=== PATIENT | female | born 1980 | race Caucasian/White ===

== ENCOUNTER 2018-08-07 15:30 | Outpatient (REF) | payer MEDICAID, SELFPAY ==
[2018-08-07 21:35] LABS: Hemoglobin A1C 5.5 % (4.5-6.2)
[2018-08-07 21:44] LABS: Cholesterol 218 mg/dL (50-200); HDL Cholesterol 44 mg/dL (40-60); LDL CHOLESTEROL 155 mg/dL (<100); TSH (W/Ref FT4) 1.81 uIU/mL (0.358-3.74); Triglyceride 68 mg/dL (30-150)
== END 2018-08-07 15:50 ==
LOC: NCHCN 15:30
PROVIDERS: PCP Nurse Practitioner Family; Visit Provider Nurse Practitioner Family
DX: R35.0 Frequency of micturition (principal); F39 Unspecified mood [affective] disorder; G47.00 Insomnia, unspecified; N89.8 Other specified noninflammatory disorders of vagina; E66.9 Obesity, unspecified; Z00.00 Encounter for general adult medical examination without abnormal findings
CPT/HCPCS: 80061; 83721; 83036; 84443

== ENCOUNTER 2018-10-02 14:32 | Outpatient (REF) | payer MEDICAID, SELFPAY ==
--- NOTE | 2018-10-02 14:00 | PAPFT_PTH ---
PATIENT: Brinda Neely LOC: [facility]#:[id number] AGE/SX: 38/F ROOM: RE10/02/[address]: Taylor Cobian : 1980 BED: DIS: 10/02/2018 SPEC #: [id number] RECD: 10/03/18 13:14 STATUS: LLOYD MUKHERJEE #: [id number] KARIE: 10/02/18 14:[address]: Taylor Cobian DEPT: [facility] Cytology RECD BY: Karlie Mckeon Tissues: 1 - CX/ENDOCX FOR PAP SMEARS Procedures: PAP THIN PREP/UVM Screening HPV DNA PROBE Comments: [id number]
== END 2018-10-02 14:52 ==
LOC: NCHCN 14:32
PROVIDERS: PCP Nurse Practitioner Family; Visit Provider Nurse Practitioner Family
DX: Z12.4 Encounter for screening for malignant neoplasm of cervix (principal); Z11.51 Encounter for screening for human papillomavirus (HPV); Z00.00 Encounter for general adult medical examination without abnormal findings; Z01.419 Encounter for gynecological examination (general) (routine) without abnormal findings
CPT/HCPCS: 88142; 87624

== ENCOUNTER 2020-06-21 14:54 | Outpatient (REF) | payer MEDICAID, SELFPAY ==
[2020-06-25 17:22] LABS: Patient Race White; SARS-CoV-2 RNA Undetected (Undetected); SARS-CoV-2 Specimen Source Nasal
== END 2020-06-21 15:14 ==
LOC: NCHCN 14:54
PROVIDERS: PCP Nurse Practitioner Family; Visit Provider Nurse Practitioner Family
DX: Z20.828 Contact with and (suspected) exposure to other viral communicable diseases (principal)
CPT/HCPCS: U0003

== ENCOUNTER 2021-01-02 17:28 | Outpatient (REF) | payer BC, MEDICAID, SELFPAY | END 2021-01-02 17:29 | disposition home or self-care (01) | LOC: NCHCN 17:28 | PROVIDERS: PCP Nurse Practitioner Family; Visit Provider Nurse Practitioner Family | DX: R53.1 Weakness (principal); R21 Rash and other nonspecific skin eruption; E66.9 Obesity, unspecified; F39 Unspecified mood [affective] disorder | CPT/HCPCS: 82565 ==

== ENCOUNTER → 2022-06-08 00:48 | Outpatient (CLI) | payer BC, MEDICAID, SELFPAY ==
--- NOTE | 2022-06-08 | DI.RAD_ITS ---
Exam(s) XR HUMERUS LT EXAM: XR HUMERUS LT CLINICAL HISTORY: CONTRACEPTION COUNSELING Z71.89 CONFIRM LOCATION OF IMPLANT. TECHNIQUE: 2D digital imaging was performed. COMPARISON: No exams were available for comparison FINDINGS: Two views: No evidence of fracture. Bone density normal. No osseous lesions. Visualized glenohumeral joint ap pears unremarkable. IMPRESSION: No significant osseous findings. Incidentally noted is a contraceptive in tried device in the anteri or deep subcutaneous tissue of the lower aspect of the upper arm. DATA REPOSITORY: RADIATION DOSE DELIVERED:
== END ==
PROVIDERS: PCP Nurse Practitioner Family; Visit Provider Nurse Practitioner Family
DX: Z71.89 Other specified counseling (principal)
CPT/HCPCS: 73060

== ENCOUNTER 2023-01-17 15:22 | Outpatient (REF) | payer BC, MEDICAID, SELFPAY ==
[2023-01-17 14:25] LABS: ALT 31 U/L (14-59); AST 21 U/L (15-37); Alkaline Phosphatase 62 U/L (46-116); Anion Gap 10.6 mmol/L (3-11); BUN 20 mg/dL (7-18); Bilirubin, Total 0.6 mg/dL (0.2-1.0); CO2 25.4 mmol/L (21.0-32.0); Calculated LDL 155 mg/dL (<100); Chloride 106 mmol/L (98-107); Cholesterol 218 mg/dL (<200); Estimated GFR 72.13 (mL/min/1.73m2); Glucose 124 mg/dL (74-106); HDL Cholesterol 40 mg/dL (40-60); Potassium 4.7 mmol/L (3.5-5.1); Sodium 142 mmol/L (136-145); Total Protein 7.2 g/dL (6.4-8.2); Triglyceride 115 mg/dL (<150)
== END 2023-01-17 15:23 | disposition home or self-care (01) ==
LOC: NCHCN 15:22
PROVIDERS: PCP Nurse Practitioner Family; Visit Provider Family Medicine
DX: E78.5 Hyperlipidemia, unspecified (principal)
CPT/HCPCS: 80053; 80061

== ENCOUNTER 2023-05-27 15:52 | Outpatient (REF) | payer BC, MEDICAID, SELFPAY ==
--- NOTE | 2023-05-27 15:30 | PAPFT_PTH ---
PATIENT: Brinda Neely LOC: [facility]#:[id number] AGE/SX: 42/F ROOM: RE05/27/[address]: Taylor Cobian : 1980 BED: DIS: 05/27/2023 SPEC #: [id number] RECD: 05/28/23 13:07 STATUS: LLOYD REQ #: [id number] KARIE: 05/27/23 15:[address]: Taylor Cobian DEPT: [facility] Cytology RECD BY: Karlie Mckeon Tissues: 1 - CX/ENDOCX FOR PAP SMEARS Procedures: PAP THIN PREP/UVM Screening HPV DNA PROBE Comments: [id number]
== END 2023-05-27 15:53 | disposition home or self-care (01) ==
LOC: NCHCN 15:52
PROVIDERS: PCP Nurse Practitioner Family; Visit Provider Nurse Practitioner Family
DX: Z12.4 Encounter for screening for malignant neoplasm of cervix (principal); Z11.51 Encounter for screening for human papillomavirus (HPV)
CPT/HCPCS: 88142; 87624

== ENCOUNTER 2024-03-27 01:28 | Outpatient (CLI) | payer BC, MEDICAID, SELFPAY ==
--- OUTSIDE RECORDS SUMMARY | 2024-03-27 01:30 | XMS_ITS | Referral Summary ---
Author Organization [facility] Address [address] [place] [address] Care Team Providers Care Hospital Fellow Name Role Phone Taylor Cobian CORRECTIONS SPECIALIST Primary Care Provider [phone] Social History Tobacco Use Types Packs/Day Years Used Date Smoking Tobacco: Never Assessed Interpersonal Safety Answer Date Record ed Physically Hurt Never 02/28/2020 Verbally Threaten Not on file 02/28/2020 Sex and Gender Information Value Date Recorded Sex Assigned at Not on file Gender Identity Not on file Sexual Orientation Not on file Plan of Treatment Not on file Care Teams Hospital Fellow Relationship Specialty Start Date End Date Taylor Cobian, LISSY [address] [place] [address] PCP - General 03/22/17
--- OUTSIDE RECORDS SUMMARY | 2024-03-27 01:30 | XMS_ITS | Clinical Summary ---
Author Organization [facility] Address [address] [place] [address] Care Team Providers Care Sheet Rock Installer Name Role Phone Taylor Cobian SHIRT MAKER Primary Care Provider [phone] Social History Tobacco Use Types Packs/Day Years Used Date Smoking Tobacco: Never Assessed Interpersonal Safety Answer Date Record ed Physically Hurt Never 02/28/2020 Verbally Threaten Not on file 02/28/2020 Sex and Gender Information Value Date Recorded Sex Assigned at Not on file Gender Identity Not on file Sexual Orientation Not on file Plan of Treatment Health Maintenance Due Date Last Done Comments Hepatitis C Screen 1980 Hepatitis B Vaccine (1 of 3 - 19+ 3-dose series) 07/03 COVID-19 Vaccine (2022-24 season) 2023 Care Teams Sheet Rock Installer Relationship Specialty Start Date End Date Taylor Cobian APRN [address] [place], [place] [address] PCP - General 03/22/17
--- OUTSIDE RECORDS SUMMARY | 2024-03-27 01:30 | XMS_ITS | Continuity of Care Document ---
Author Organization [place] - [facility] Address [address] [place] [address] Assessment Encounter Date Assessment Date Assessment LastModified by Organization Details LastModified Time 12/30/2023 12/30/2023 Hold on mammogram per desires. [place] in January for CMP, lipids, UA/ MA; BP check FU in 3 months, call or RTO sooner if needs arise. Not available 12/30/2023 15:34:43 Plan of Treatment Reminders Order Date Submit Date Provider Last Modified By Organization Details Last Modified Time Details Appointments Follow Up 30 2023 08:30A M Not available Not available Not available Lab None recorded. Referral None recorded. Procedures None recorded. Surgeries None recorded. Imaging None recorded. Medication Orders acyclovir 400 mg tablet 2023 024 [facility] [address] [place], [address], 12/30/2023 15:32:21 buspirone 10 mg tablet 2023 024 [facility], [address] [place], [address], 12/30/2023 15:36:31 Patient TargetsNo targets recorded. Patient Instructions Encounter Date Encounter Id Patient Instructions Last Modified By Organization Details Last Modified Time 12/30/2023 [id number] starting a weigh t loss plan: care instructions Not available 12/30/2023 15:32:04 diet Not available 2023 15:32:03 exercise Not available 2023 15:32:03 Reason for Referral None Reported. Problems Name Problem SNOMED Code Status Onset Date Resolution Date Notes Provider Name and Address Organization Details Recorded Time Nicotine dependen ce in remissio n 347085073 [facility] 13:39:50 Insomnia 438781494 Active 2013 Sherita Ray [facility] 4 13:39:35 Mood disorder 42126082 Active [facility] 4 13:39:46 Obesity 837480091 Active 2014 Sherita Ray [facility] 4 13:39:55 General examinat ion of patient Completed 201402/10/2015 02/04/20 15 - Comments only - Naomi Cantrell APRN - Pap smear done today. Check TSH, lipids, random glucose. Problem Code: Z00.8; Problem Code Type: ICD-10; Not Available [facility] 3 05:22:29 Counseli ng Active 2015 Sheritaher Ray [facility] 4 13:39:13 Acute sinusiti s 83311998 Completed 201611/19/2016 10/20/19 17 - Comments only - Naomi Cantrell APRN - Most likely viral due to duration and physical findings . Encourag e symptom manageme nt with normal saline sprays, saltwate r gargles, NSAIDs, Mucinex, Norma-Rosana tzer as desired. Encourag e good hydratio n, good hand hygiene. If no improvem ent or worsenin g symptoms over the next 3-5 days would consider some clinic for Augmenti n 875 mg by mouth twice a day 10 days. Problem Code: J01.90; Problem Code Type: ICD-10; Not Available [facility] 3 05:22:30 Adult health examinat ion Active 2018 Sherita castillo [facility] 4 13:39:02 Hyperlip idemia 63513840 Active 2018 [facility] 4 13:39:31 Localize d eruption of skin 993468326 Active 2019 [facility] 4 13:39:39 Snoring 06488346 Active 2019 [facility] 4 13:40:04 Asthenia 71043789 Active 2020 [facility] 4 13:39:06 Seasonal allergic rhinitis 761013978 Active 2021 [facility] 4 13:39:59 Elevated blood-pr essure reading without diagnosi s of hyperten dc 845327537 Completed 202207/09/2023 Problem Code: R03.0; Problem Code Type: ICD-10; Not Available [facility] 4 05:37:41 Hypergly cemia 11059007 Active 2022 [facility] 4 13:39:26 Dysuria 00395083 Completed 202205/27/2023 Problem Code: R30.0; Problem Code Type: ICD-10; Not Available [facility] 4 05:37:41 Pain of ear 603737811 Completed 201402/06/2016 Problem Code: H92.09; Problem Code Type: ICD-10; Not Available [facility] 3 05:22:31 Tobacco dependen ce syndrome 90920568 Completed 201304/24/2023 03/24/20 15 - Comments only - Naomi Cantrell RACING SECRETARY AND HANDICAPPER - Encourag e smoking cessatio n. Problem Code: 305.1; Problem Code Type: ICD-9; Not Available [facility] 3 05:22:31 Acute pharyngi tis 671382940 Completed 201502/06/2016 Problem Code: J02.9; Problem Code Type: ICD-10; Not Available [facility] 3 05:22:31 Nicotine dependen ce 08132746 Completed 201304/24/2023 Problem Code: F17.209; Problem Code Type: ICD-10; Not Available [facility] 3 05:22:31 Verruca vulgaris 73231750 Completed 201905/24/2022 Problem Code: B07.8; Problem Code Type: ICD-10; Not Available [facility] 3 05:22:32 Ganglion cyst 208657024 Completed 201601/02/2021 Problem Code: M67.40; Problem Code Type: ICD-10; Not Available [facility] 3 05:22:32 Increase d frequenc y of urinatio n 100747786 Completed 201807/14/2020 Problem Code: R35.0; Problem Code Type: ICD-10; Not Available [facility] 3 05:22:32 Noninfla mmatory disorder of the vagina 75828406 Completed 201807/14/2020 Problem Code: N89.8; Problem Code Type: ICD-10; Not Available [facility] 3 05:22:32 Exposure to communic able disease Completed 201907/14/2020 Problem Code: Z20.9; Problem Code Type: ICD-10; Not Available [facility] 3 05:22:32 Disorder of skin and/or subcutan eous tissue 39042094 Completed 201608/07/2018 Problem Code: L98.9; Problem Code Type: ICD-10; Not Available [facility] 3 05:22:32 [facility] hyperten dc 80392609 Active 2022 Sherita castillo [facility] 4 13:39:16 Headache 13987302 Active 2022 [facility] Cory castillo [facility] 4 13:39:21 Paresthe arvin of hand 596113526 Active 2023 NAOMI CANTRELL, RACING SECRETARY AND HANDICAPPER [address], [place], [address] , [facility] 05:44:08 Problem Notes None recorded. Procedures Surgical History Date Name Laterality Status Provider Name and Address Organization Details Recorded Time 05/27/2023 Date of Last Pap Smear completed NILTON PARMAR, [facility] 07/09/2023 13:09:26 Imaging Results None recorded. Procedure Notes None recorded. Medical Equipment None Reported. Allergies No known drug allergies Medications Name Sig Start Date Stop Date Status Note LastModified by Organization Details LastModified Time trazodone 50 mg tablet take 1/2 - 1 tablet at bedtime 08/07 completed Not Available Not Available Not Available topiramate 25 mg tablet TAKE ONE TABLET BY MOUTH EVERY DAY 12/29 completed Not Available Not Available Not Available acyclovir 400 mg tablet TAKE ONE TABLET BY MOUTH TWICE A DAY active Not Available Not Available No t Available doxepin 10 mg capsule TAKE ONE CAPSULE BY MOUTH AT BEDTIME 12/29 completed Not Available Not Available Not Available propranolol 10 mg tablet Take 1 tablet by mouth twice a day 05/27 completed Not Available Not Available Not Available alprazolam 0.25 mg tablet Take 1 tab by mouth daily as needed 03/11 completed Not Available Not Available Not Available paroxetine 20 mg tablet Take 1 by mouth daily 06/27 completed Not Available Not Available Not Available buspirone 10 mg tablet TAKE ONE TABLET BY MOUTH TWICE A DAY active Not Available Not Available No t Available buspirone 7.5 mg tablet Take 1 tab by mouth twice a day 08/07 completed Not Available Not Available Not Available hydroxyzine HCl 25 mg tablet Take 1 tablet three times a day prn 06/27 completed Not Available Not Available Not Available mupirocin 2 % topical ointment Apply 1 a small amount to affected area three times a day Use for 7 days and then call the clinic with update. 06/22 completed Not Available Not Available Not Available propranolol 20 mg tablet TAKE ONE TABLET BY MOUTH TWICE A DAY active Not Available Not Available No t Available amoxicillin 875 mg-potassdou m clavulanate 125 mg tablet TAKE ONE TABLET BY MOUTH TWICE A DAY FOR 10 DAYS active Not Available Not Available No t Available Lexapro 5 mg tablet Take 1 tablet by mouth once a day If it is well tolerated after one week, you may increase to 10mg (2 tablets) daily. 02/04 completed Not Available Not Available Not Available vitamin K85-jtinr acid Take 1 tablet by mouth once a day 01/12 completed Not Available Not Available Not Available Vitamin D3 10 mcg (400 unit) capsule Take 1 capsule by mouth once a day 01/12 completed Not Available Not Available Not Available Nexplanon 68 mg subdermal implant Change out done 07/19 active Not Available Not Available Not Avai lable Vitals Date Recorded Body height Body mass index (BMI) Body weight Body temperature Oxygen saturation Oxygen saturation in Arterial blood by Pulse oximetry Heart rate Systolic blood pressure Diastolic blood pressure Provider Name and Address Organization Details Last Updated DateTime 158.11 cm 39.6 kg/m2 87748.5 4 g 98.4 [degF] 98 % 98 % 71 /min 116 mm[Hg] 88 mm[Hg] NIALL MONCADA CMA [facility] 15:10:51 Date Recorded Systolic blood pressure Diastolic blood pressure Provider Name and Address Organization Details Last Updated DateTime 12/30/2023 118 mm[Hg] 82 mm[Hg] NAOMI CANTRELL APRN [address], [place], [address], [facility] 12/30/2023 15:27:45 Social History Question Answer Notes LastModified by Organizat ion Details LastModified Time Tobacco Smoking Status Never Smoker NIALL MONCADA CMA null, [facility] 09/10/2023 13:31:08 What Was The Date Of Your Most Recent Tobacco Screening? 09/10/2023 Information not available 09/10/2023 Has Tobacco Cessation Counseling Been Provided? No Information not available 09/10/2023 Do You Or Have You Ever Used Any Other Forms Of Tobacco Or Nicotine? No Information not available 09/10/2023 Sex: Female Functional Status None recorded. Mental Status None recorded. Family History Relationship Description Onset Age of this Age Resolved Age Notes Mother Family history of Depression Notes:*Problem: Mother: Cesar messina - Depression Father: - stroke X 2 (late 40s & mid 50s), bone CA, kidney failure, HTN Sibling- 1/2 sister, alive and well Children: 2 - alive and well Htn: Yes HLD: No CAD: Yes Diabetes mellitus: No Breast ca: No Colorectal ca: No Uterine/ ovarian CA: No Alcoholism: No Mental illness: Yes Medical History No medical history recorded. Gynecological History Statement/Question Response Abnormal Pap N Date of Last Pap Smear 05/27/2023 Obstetrics History GPAL:G 0 P 0 0 0 0 Immunizations Vaccine Type Date Status Provider Name and Address Organization Details Recorded Time Tdap 09/17/2013 completed Not Available [facility] 06:19:44 Tdap 09/17/2022 completed Not Available [facility] 06:19:44 Influenza, split virus, trivalent, preservative 05/14/2016 completed Not Available [facility] 06/07/2023 06:19:44 Influenza, split virus, trivalent, preservative 06/27/2015 completed Not Available [facility] 06/07/2023 06:19:44 Influenza, split virus, quadrivalent, PF 04/14/2020 completed Not Available [facility] 06/07/2023 06:19:44 Influenza, split virus, quadrivalent, PF 04/24/2019 completed Not Available [facility] 06/07/2023 06:19:45 Influenza, split virus, quadrivalent, PF 05/03/2021 completed Not Available [facility] 06/07/2023 06:19:45 Influenza, split virus, quadrivalent, PF 05/24/2022 completed Not Available [facility] 06/07/2023 06:19:45 Influenza, split virus, quadrivalent, preservative 04/25/2017 completed Not Available [facility] 06/07/2023 06:19:45 Influenza, split virus, quadrivalent, preservative 05/08/2018 completed Not Available [facility] 06/07/2023 06:19:45 COVID-19, mRNA, LNP-S, PF, 100 mcg/0.5mL dose or 50 mcg/0.25mL dose 11/09/2020 completed Not Available [facility] 06/07/2023 06:19:45 COVID-19, mRNA, LNP-S, PF, 100 mcg/0.5mL dose or 50 mcg/0.25mL dose 12/07/2020 completed Not Available [facility] 06/07/2023 06:19:45 COVID-19, mRNA, LNP-S, PF, 100 mcg/0.5mL dose or 50 mcg/0.25mL dose 07/06/2021 completed Not Available [facility] 06/07/2023 06:19:45 SARS-COV-2 (COVID-19) vaccine, UNSPECIFIED 04/19/2022 completed Not Available [facility] 06/07/2023 06:19:45 COVID-19, mRNA, LNP-S, bivalent, PF, 30 mcg/0.3 mL dose 03/29/2023 completed Not Available [facility] 06/07/20 06:19:45 pneumococcal polysaccharide PPV23 09/17/2013 completed Not Available [facility] 2022 06:19:46 Influenza, split virus, quadrivalent, PF 05/31/2023 completed Not Available [facility] 08/09/2023 05:33:17 Past Encounters Encounter ID Performer Location Encounter Start Date Encounter Closed Date Diagnosis/Indication Diagnosis SNOMED-CT Code Diagnosis ICD10 Code [id number] NAOMI CANTRELL APRN [address] [address] 12/30/2023 14:54:33 12/30/2023 15:46:07 Obesity 710836429 E66.9 Essential hypertension 99651160 I10 Mood disorder 35307757 F 39 Localized eruption of skin 192225032 R21 Headache 26508446 R51.9 Seasonal a llergic rhinitis 287232397 J30.2 Paresthesia of hand 3090 77199 R20.2 Health Concerns Section Related Observation LastModified by Organization Detai ls LastModified Time None Recorded Concern Status LastModified by Organization Details LastModified Time None Recorded Payers Encounter Date Sequence Insurance Name Policy Number Policy Carrillo Covered Member ID Carrillo Member ID Guarantor Name 12/30/2023 1 [facility] [id number] Brinda Neely [id number] Brinda Lagunagabriela Notes Date Note Type Note Provider Name and Address Organization Details Recorded Time 12/30/2023 text/html HPI Notes: Is he re for follow-up: update- she has moved out of her house. Has a new apartment on [address]. Staying with a friend that had an empty house, and this house will be sold soon. She has the keys. Moved out of [place] last weekend. Has been out of her house for 3 weeks. Now can slowly move. Plans to take most of their stuff this weekend. The boys are good with the move. Obesity. Elevated blood sugar. Working on lifestyle. Last visit started on topamax. -- update 12.30.23. taking, did not tolerate s/e of the medication. She did a whole month of this, caused dizziness, increase in headaches. HTN. HLD. Working on lifestyle. Taking propranolol, dose was increased last visit to 20mg BID. -- update 12.30.23. worries about her BP, has been monitoring for last few weeks. SPB 130-160. DBP 77-106. Worried about her BP. Mood disorder. Insomnia. Taking buspar, propranolol. 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 No herpes outbreaks. Weakness. Paresthesia. To hands. Is intermittent. Has been encouraged to do splinting. Headache. Working on BP control, stress mgmt. Is on propranolol. Takes APAP PRN. Seasonal allergies. Takes meds PRN. Paresthesia of hand. Last visit was encouraged to splint QHS. NAOMI CANTRELL, RACING SECRETARY AND HANDICAPPER [address], [place], [address], [facility]. 12/30/2023 15:49:54 OBGyn Episode No OBEpisode recorded.
--- OUTSIDE RECORDS SUMMARY | 2024-03-27 01:30 | XMS_ITS | Encounter Summary ---
Author Organization [facility] Address [address] [place] [address] Care Team Providers Care Register Clerk Name Role Phone MangoNaomi osei SHREDDER TENDER Primary Care Provider [phone] Encounter Details Date Type Department Care Team (Late st Contact Info) Description 10/02/2018 Results Only [facility] [phone] Naomi Cantrell, LISSY [address] [facility] [address] [place] [id number] Social History Tobacco Use Types Packs/Day Years Used Date Smoking Tobacco: Never Assessed Sex and Gender Information Value Date Recorded Sex Assigned at Not on file Gender Identity Not on file Sexual Orientation Not on file documented as of this encounter Plan of Treatment Not on file documented as of this encounter Procedures Procedure Name Priority Date/Time Associated Diagnosis Comments PAP TEST- RESULT ONLY Routine 10/02/2018 0:00 EST documented in this encounter Results * PAP TEST- RESULT ONLY (10/02/2018 0:00 EST) Pathology Report: CYTOPATHOLOGY REPORT Reports generated via electronic interface contain original data; however they are lacking the format of the original report. Caution should be taken when reading/interpreti ng unformatted reports. Name: ? LORETTA NEELY ? Accession #: ? [id number] ? : ? 1980 (Age: 38) ??F ?Collect Date: ? 10/02/2018 ? Location: ? [facility] ? Receive Date: ? 10/07/2018 ? Provider: NAOMI CANTRELL SHREDDER TENDER Copy to: ? Final Report SPECIMEN ADEQUACY ? Satisfactory for Evaluation - transformation zone component present GENERAL CATEGORIZATION ? Negative for Intraepithelial Lesion or Malignancy ?? Last Menstrual Period: 08/07/2018 Hormonal/Contracep tive status: Yes Other: Additional clinical information: Z00.00 Z12.4 Z01.419 Specimen/Source: ??Pap Test, Cervix/Endocervix, ThinPrep Imaging System with manual evaluation Document reviewed and electronically signed by: ? Carmina Sheikh, [facility](ASCP) ? Report ??Date: 10/08/2018 08:36 HPV with Pap Test ? Date Ordered: ? 10/08/2018 ? Status: ?? Signed Out ?Date Complete: ? 10/09/2018 ? By: ??System Interface ? Date Reported: ? 10/09/2018 ? Interpretation RESULT: Negative for HPV. No E6 or E7 mRNA is detected from HPV types 16,18,31,33,35, 39,45,51,52,56,58, 59,66, and 68 by instructor industrial design mediated amplification. Comments Document reviewed and electronically signed by: ? System Interface ? Report date: 10/09/2018 By the signature above, the attending physician certifies that he/she has personally conducted a gross and/or microscopic examination of the described specimens and rendered or confirmed the above diagnosis. End of Report [facility] 10/02/2018 10/07/2018 Naomi Cantrell APRN PATHOLOGY ORDERAB LES [facility] [address] [place] [address] documented in this encounter Visit Diagnoses Not on filedocumented in this encounter Care Teams Register Clerk Relationship Specialty Start Date End Date Naomi Canrtell, LISSY [address] [place], [place] [address] PCP - General 03/22/17 documented as of this encounter
--- OUTSIDE RECORDS SUMMARY | 2024-03-27 01:30 | XMS_ITS | Encounter Summary ---
Author Organization [facility] Address [address] [place] [address] Care Team Providers Care Committee Member Name Role Phone Unknown, Provider Primary Care Provider [phone] Encounter Details Date Type Department Care Team (Late st Contact Info) Description 03/18/2017 Results Only [facility] [phone] Lion Torres MD [address] [place] [id number] Social History Tobacco Use Types Packs/Day Years Used Date Smoking Tobacco: Never Assessed Sex and Gender Information Value Date Recorded Sex Assigned at Not on file Gender Identity Not on file Sexual Orientation Not on file documented as of this encounter Plan of Treatment Not on file documented as of this encounter Procedures Procedure Name Priority Date/Time Associated Diagnosis Comments SURGICAL PATHOLOGY Routine 03/18/2017 18 :27 EDT documented in this encounter Results * SURGICAL PATHOLOGY (03/18/2017 18:27 EDT) Pathology Report: SURGICAL PATHOLOGY REPORT Reports generated via electronic interface contain original data; however they are lacking the format of the original report. Caution should be taken when reading/interpreting unformatted reports. Name: ? LORETTA NEELY ? Accession #: ? [id number] ? : ? 1980 (Age: 36) ??F ? Collect Date: ? 03/18/2017 ? Location: ? [facility] ? Receive Date: ? 03/19/2017 ? Provider: LION TORRES MD Copy to: NAOMI CANTRELL FLAT SURFACER ? Final Pathologic Diagnosis: SKIN OF CHEEK, LEFT, SHAVE BIOPSY: - Features consistent with seborrheic keratosis, irritated. ??See comment. Comment: Deeper levels have been examined. This case was shown in intradepartmental consultation. (Dr. Gutierrez)/n Document reviewed and electronically signed by: MARILYNN GUTIERREZ MD Report ??Date: 03/25/2017 13:40 By the signature above, the attending physician certifies that he/she has personally conducted a gross and/or microscopic examination of the described specimens and rendered or confirmed the above diagnosis. Specimen(s) Received: Skin lesion L cheek shave excision Clinical History: Skin lesion of face; clinical diagnosis code: L98.9 Gross Description: ? Received in formalin labelled with proper patient identification (initials S, R) and left cheek is a 0.2 x 0.2 x 0.1 cm circular shave of granular white skin. The margin is inked blue. The specimen is submitted in toto in 1. LATRICE Zavala (ASCP) 03/20/2017 8:26 AM End of Report [facility] 03/18/2017 18:2 7 EDT 03/19/2017 18:27 EDT Lion Torres MD PATHOLOGY ORDERABLES [facility] [address] [place] [address] documented in this encounter Visit Diagnoses Not on filedocumented in this encounter Care Teams Committee Member Relationship Specialty Start Date End Date Unknown, Provider, PCP - General 02/08/15 03/21/17 documented as of this encounter
--- OUTSIDE RECORDS SUMMARY | 2024-03-27 01:30 | XMS_ITS | Encounter Summary ---
Author Organization [facility] Address [address] [place] [address] Care Team Providers Care Divorce Mediator Name Role Phone Taylor Cobian HOUSEKEEPING ASSOCIATE Primary Care Provider [phone] Encounter Details Date Type Department Care Team (Latest Contact Info) Description 05/29/2023 Lab Requisition [facility] Pathology & Laboratory Medicine - [facility] [address] [place] [address] Taylor Cobian, LISSY [address] [facility] [address] [place] [address] Encounter for screening for malignant neoplasm of cervix; Encounter for gynecological examination (general) (routine) without abnormal findings; Encounter for general adult medical examination without abnormal findings Social History Tobacco Use Types Packs/Day Years [...] Name Priority Date/Time Associated Diagnosis Comments PAP TEST Today 05/27/2023 15:30 EDT Encounter for screening for malignant neoplasm of cervix Encounter for gynecological examination (general) (routine) without abnormal findings Encounter for general adult medical examination without abnormal findings HPV DNA DETECTION WITH GENOTYPING, PCR Today 05/27/2023 15:30 EDT Encounter for screening for malignant neoplasm of cervix Encounter for gynecological examination (general) (routine) without abnormal findings Encounter for general adult medical examination without abnormal findings documented in this encounter Results * HUMAN PAPILLOMAVIRUS (HPV) DETECTION-HIGH RISK TYPES (05/27/2023 15:30 EDT) HPV other High Risk types, PCR Negative Negative 06/05/2023 14:10 [facility] Comment:No E6 or E7 mRNA is detected from HPV types 16,18,31,33,35,39,45,51,52,56,58,59,66, and 68 by calciminer mediated amplification. Pap Test CERVIX UTERI STRUCTURE / Unknown 05/27/2023 15:30 EDT 06/04/2023 11:49 EST Taylor Cobian APRN MICROBIOLOGY - GE NERAL ORDERABLES [facility] [address] [place] [address] * PAP TEST (05/27/2023 15:30 EDT) Specimens A. Cervix and/or Endocervix , ThinPrep Imaging System with Manual Evaluation 06/05/2023 14:10 [facility] Specimen Adequacy Satisfactory for Evaluation - transformation zone component present 06/05/2023 14:10 [facility] General Categorization Negative for intraepithelial lesion or malignancy 06/05/2023 14:10 [facility] Attestation . 06/05/2023 14:10 [facility] at 1410 Clinical History See below 06/05/20 23 14:10 [facility] HPV The result for the Human Papillomavirus (HPV) Detection-High Risk Types is Negative. No E6 or E7 mRNA is detected from HPV types 16,18,31,33,35,39 ,45,51,52,56,58,5 9,66, and 68 by calciminer mediated amplification.Sinai ting was performed on specimen [id number] and was resulted on 06/05/2023 1410 EST by GERARDO, LAB INSTRUMENT RESULTS IN 06/05/2023 14:10 [facility] Performing Lab [facility] 06/05/2023 14:10 EST [facility] Scanned Images 06/05/2023 14:10 [facility] Pap Test CERVIX UTERI STRUCTURE / Unknown 05/27/2023 15:30 EDT 05/29/2023 11:41 EDT Taylor Cobian APRN PATHOLOGY ORDERAB LES [facility] [address] [place] [address] documented in this encounter Visit Diagnoses Diagnosis Encounter for screening for malignant neoplasm of cervix Screening for malignant neoplasm of the cervix Encounter for gynecological examination (general) (routine) without abnormal findings Encounter for general adult medical examination without abnormal findings Unspecified general medical examination documented in this encounter Care Teams Divorce Mediator Relationship Specialty Start Date End Date Taylor Cobian APRN [address] [place] [address] PCP - General 03/22/17 documented as of this encounter
--- OUTSIDE RECORDS SUMMARY | 2024-03-27 01:30 | XMS_ITS | Encounter Summary ---
Author Organization [facility] Address [address] [place] [address] Care Team Providers Care Electrical Wiring Lineman Name Role Phone Unknown, Provider Primary Care Provider Encounter Details Date Type Department Care Team (Latest Contact Info) Description 03/18/2017 9:39 EDT - 03/18/2017 23:59 EDT Hospital Encounter [address] [address] Unknown, ProviderMD Discharge Disposition: Home or Self Care Social History Tobacco Use Types Packs/Day Years Used Date Smoking Tobacco: Never Assessed Sex and Gender Information Value Date Recorded Sex Assigned at Not on file Gender Identity Not on file Sexual Orientation Not on file documented as of this encounter Discharge Disposition Disposition Code Departure Means Destination Home or Self Skilled Nursing documented in this encounter Plan of Treatment Not on file documented as of this encounter Visit Diagnoses Not on filedocumented in this encounter Care Teams Electrical Wiring Lineman Relationship Specialty Start Date End Date Unknown, ProviderMD PCP - General 02/08/15 03/21/17 documented as of this encounter
--- OUTSIDE RECORDS SUMMARY | 2024-03-27 01:30 | XMS_ITS | Encounter Summary ---
Author Organization [facility] Address [address] [place] [address] Care Team Providers Care Ramp Service Employee Name Role Phone Unknown, Provider Primary Care Provider Encounter Details Date Type Department Care Team (Late st Contact Info) Description 02/03/2015 Results Only [place]- [facility] [phone] Naomi Cantrell, LENS COATER [address] [facility] [address] [place] [id number] Social History Tobacco Use Types Packs/Day Years [...] Diagnosis Comments PAP TEST- RESULT ONLY Routine 02/03/2015 0:00 EDT documented in this encounter Results * PAP TEST- RESULT ONLY (02/03/2015 0:00 EDT) Pathology Report: CYTOPATHOLOGY REPORT Reports generated via electronic interface contain original data; however they are lacking the format of the original report. Caution should be taken when reading/interpreti ng unformatted reports. Name: ? LORETTA NEELY ? Accession #: ? [id number] ? : ? 1980 (Age: 34) ??F ?Collect Date: ? 02/03/2015 ? Location: ? [facility] ? Receive Date: ? 02/08/2015 ? Provider: NAOMI CANTRELL LENS COATER Copy to: ? Final Report SPECIMEN ADEQUACY ? Satisfactory for Evaluation - transformation zone component absent GENERAL CATEGORIZATION ? Negative for Intraepithelial Lesion or Malignancy ?? Last Menstrual Period: 01/19/2015 Hormonal/Contracep tive status: Yes: Implanon Previous Gynecologic Pathology: Yes: hx abn pap 7 years ago Specimen/Source: ??Pap Test, Cervix/Endocervix, ThinPrep Imaging System with manual evaluation Document reviewed and electronically signed by: ? JUAN DAVID Crane(ASCP) ? Report ??Date: 02/15/2015 11:06 HPV with Pap Test ? Date Ordered: ? 02/15/2015 ? Status: ?? Signed Out ?Date Complete: ? 02/16/2015 ? By: ??System Interface ? Date Reported: ? 02/16/2015 ? Interpretation RESULT: Negative for HPV. No E6 or E7 mRNA is detected from HPV types 16,18,31,33,35, 39,45,51,52,56,58, 59,66, and 68 by reference test clerk mediated amplification. Comments Document reviewed and electronically signed by: ? System Interface ? Report date: 02/16/2015 By the signature above, the attending physician certifies that he/she has personally conducted a gross and/or microscopic examination of the described specimens and rendered or confirmed the above diagnosis. End of Report [facility] 02/03/2015 02/08/2015 Naomi H Mango LENS COATER PATHOLOGY ORDERAB LES [facility] [address] [place] [address] documented in this encounter Visit Diagnoses Not on filedocumented in this encounter Care Teams Ramp Service Employee Relationship Specialty Start Date End Date Unknown, Provider, PCP - General 02/08/15 03/21/17 documented as of this encounter
--- OUTSIDE RECORDS SUMMARY | 2024-03-27 01:30 | XMS_ITS | Data Portability ---
Author Organization [place] - [facility] Address [place] [address] Assessment Encounter Date Assessment Date Assessment LastModified [...] Last Modified Time Details Appointments Follow Up 2023 08:30A M Not available Not available Not available Lab None recorded. Referral None recorded. Procedures None recorded. Surgeries None recorded. Imaging None recorded. Medication Orders topiramat e 25 mg tablet 2023 024 [email or web address] [facility], [address] [place], [address], 12/30/2023 15:07:23 acyclovir 400 mg tablet 2023 024 JAY [facility], [address] [place], [address], 12/30/2023 15:32:21 buspirone 10 mg tablet 2023 024 JAY [facility], [address] [place], [address], 12/30/2023 15:36:31 Patient TargetsNo targets recorded. Patient Instructions Encounter Date Encounter Id Patient Instructions Last Modified By Organization Details Last Modified Time 09/10/2023 [id number] When You Want to Lose Weight: Care Instructions Not available 09/10/2023 14:02:51 starting a weigh t loss plan: care instructions Not available 09/10/2023 14:02:51 learning about obesity Not available 09/10/2023 14:02:51 12/30/2023 [id number] starting a weigh t loss plan: care instructions Not available 12/30/2023 15:32:04 diet Not available 2023 15:32:03 exercise Not available 2023 15:32:03 Reason for Referral None Reported. Problems Name Problem SNOMED Code Status Onset Date Resolution Date Notes Provider Name and Address Organization Details Recorded Time Nicotine dependen ce in [facility] 312764654 [facility] 4 13:39:50 Insomnia 937334445 [facility] 4 13:39:35 Mood disorder 08481542 Active 2014 [facility] 4 13:39:46 Obesity 263752658 Active 2014 [facility] 4 13:39:55 General examinat ion of patient Completed 201402/10/2015 02/04/20 15 - Comments only - Taylor Cantrell APRN - Pap smear done today. Check TSH, lipids, random glucose. Problem Code: Z00.8; Problem Code Type: ICD-10; Not Available [facility] 3 05:22:29 Counseli radha Active 2015 [facility] 4 13:39:13 Acute sinusiti s 04451095 Completed 201611/19/2016 10/20/19 17 - Comments only - Taylor Cantrell APRN - Most likely viral due [...] J01.90; Problem Code Type: ICD-10; Not Available [facility] 3 05:22:30 Adult health [facility]inat ion [facility] 4 13:39:02 Hyperlip idemia 96582524 Active 2018 [facility] 4 13:39:31 Localize d eruption of skin 609154062 Active 2019 [facility] 4 13:39:39 Snoring 38820168 Active 2019 [facility] 4 13:40:04 Asthenia 41180911 Active 2020 [facility] 4 13:39:06 Seasonal allergic rhinitis 652419183 Active 2021 [facility] 4 13:39:59 Elevated blood-pr essure reading without diagnosi s of hyperten dc 057963507 Completed 202207/09/2023 Problem Code: R03.0; Problem Code Type: ICD-10; Not Available [facility] 4 05:37:41 Hypergly cemia 05446281 Active 2022 [facility] 4 13:39:26 Dysuria 97364305 Completed 202205/27/2023 Problem Code: R30.0; Problem Code Type: ICD-10; Not Available [facility] 4 05:37:41 Pain of ear 931925715 Completed 201402/06/2016 Problem Code: H92.09; Problem Code Type: ICD-10; Not Available [facility] 3 05:22:31 Tobacco dependen ce syndrome 82915090 Completed 201304/24/2023 03/24/20 15 - Comments only - Taylor Cantrell APRN - Encourag e smoking cessatio n. Problem Code: 305.1; Problem Code Type: ICD-9; Not Available [facility] 3 05:22:31 Acute pharyngi tis 771916516 Completed 201502/06/2016 Problem Code: J02.9; Problem Code Type: ICD-10; Not Available [facility] 3 05:22:31 Nicotine dependen ce 04264959 Completed 201304/24/2023 Problem Code: F17.209; Problem Code Type: ICD-10; Not Available [facility] 3 05:22:31 Verruca vulgaris 83471637 Completed 201905/24/2022 Problem Code: B07.8; Problem Code Type: ICD-10; Not Available [facility] 3 05:22:32 Ganglion cyst 734885622 Completed 201601/02/2021 Problem Code: M67.40; Problem Code Type: ICD-10; Not Available [facility] 3 05:22:32 Increase d frequenc y of urinatio n 702258556 Completed 201807/14/2020 Problem Code: R35.0; Problem Code Type: ICD-10; Not Available [facility] 3 05:22:32 Noninfla mmatory disorder of the vagina 73012749 Completed 201807/14/2020 Problem Code: N89.8; Problem Code Type: ICD-10; Not Available [facility] 3 05:22:32 Exposure to communic able disease Completed 201907/14/2020 Problem Code: Z20.9; Problem Code Type: ICD-10; Not Available [facility] 3 05:22:32 Disorder of skin and/or subcutan eous tissue 45831699 Completed 201608/07/2018 Problem Code: L98.9; Problem Code Type: ICD-10; Not Available [facility] 3 05:22:32 Filemon l marcen dc 18664597 Active 2022 [facility] 4 13:39:16 Headache 37234559 Active 2022 Sherita Ray [facility], [facility] 4 13:39:21 Paresthe arvin of hand 849477723 Active 2023 TAYLOR CANTRELL APRN [address], [place], [address] , [facility] 4 05:44:08 Problem Notes None recorded. Procedures Surgical History Date Name Laterality Status Provider Name and Address Organization Details Recorded Time 05/27/2023 Date of Last Pap Smear completed SANJANA LOYA CMA [facility], [facility] 07/09/2023 13:09:26 Imaging Results None recorded. Procedure [...] Not Available No t Available amoxicillin 875 mg-potassiu m clavulanate 125 mg tablet TAKE ONE TABLET BY MOUTH TWICE A DAY FOR 10 DAYS active Not Available Not Available No t Available Lexapro 5 mg tablet Take 1 tablet by mouth once a day If it is well tolerated after one week, you may increase to 10mg (2 tablets) daily. 02/04 completed Not Available Not Available Not Available vitamin F41-gevrm acid Take 1 tablet by mouth once [...] height Body mass index (BMI) Body weight Oxygen saturation Oxygen saturation in Arterial blood by Pulse oximetry Heart rate Systolic blood pressure Diastolic blood pressure Provider Name and Address Organization Details Last Updated DateTime 4 158.115 cm 40.7 kg/m2 511965. 09 g 99 % 99 % 85 /min 112 mm[Hg] 88 mm[Hg] NIALL MONCADA C[facility] [place] [facility] 4 13:30:08 Date Recorded Systolic blood pressure Diastolic blood pressure Provider Name and Address Organization Details Last Updated DateTime 09/10/2023 120 mm[Hg] 78 mm[Hg] TAYLOR CANTRELL APRN [address], [place], [address] 09/10/2023 13:47:13 Date Recorded Body height Body mass index (BMI) Body weight Body temperature Oxygen saturation Oxygen saturation in Arterial blood by Pulse oximetry Heart rate Systolic blood pressure Diastolic blood pressure Provider Name and Address Organization Details Last Updated DateTime 158.11 cm 39.6 kg/m2 93186.5 4 g 98.4 [degF] 98 % 98 % 71 /min 116 mm[Hg] 88 mm[Hg] NIALL MONCADA CMA [facility] 15:10:51 Date Recorded Systolic blood pressure Diastolic blood pressure Provider Name and Address Organization Details Last Updated DateTime 12/30/2023 118 mm[Hg] 82 mm[Hg] TAYLOR CANTRELL APRN [address], [place], [address] 12/30/2023 15:27:45 Social History Question Answer Notes LastModified by Organizat ion Details LastModified Time Tobacco Smoking Status Never Smoker NIALL MONCADA CMA null, [facility] 09/10/2023 13:31:08 What Was The Date Of [...] Mother Family history of Depression Notes:*Problem: Mother: Aliv e - Depression Father: - stroke X 2 [...] Recorded Time Tdap 09/17/2013 completed Not Available [facility] 06:19:44 Tdap 09/17/2022 completed Not Available [facility] 06:19:44 Influenza, split virus, trivalent, preservative 05/14/2016 completed Not Available [facility] 06/07/2023 06:19:44 Influenza, split virus, trivalent, preservative 06/27/2015 completed Not Available [facility] 06/07/2023 06:19:44 Influenza, split virus, quadrivalent, PF 04/14/2020 completed Not Available [facility] 06/07/2023 06:19:44 Influenza, split virus, quadrivalent, PF 04/24/2019 completed Not Available [facility] 06/07/2023 06:19:45 Influenza, split virus, quadrivalent, PF 05/03/2021 completed Not Available [facility] 06/07/2023 06:19:45 Influenza, split virus, quadrivalent, PF 05/24/2022 completed Not Available [facility] 06/07/2023 06:19:45 Influenza, split virus, quadrivalent, preservative 04/25/2017 completed Not Available [facility] 06/07/2023 06:19:45 Influenza, split virus, quadrivalent, preservative 05/08/2018 completed Not Available [facility] 06/07/2023 06:19:45 COVID-19, mRNA, LNP-S, PF, 100 mcg/0.5mL dose or 50 mcg/0.25mL dose 11/09/2020 completed Not Available [facility] 06/07/2023 06:19:45 COVID-19, mRNA, LNP-S, PF, 100 mcg/0.5mL dose or 50 mcg/0.25mL dose 12/07/2020 completed Not Available [facility] 06/07/2023 06:19:45 COVID-19, mRNA, LNP-S, PF, 100 mcg/0.5mL dose or 50 mcg/0.25mL dose 07/06/2021 completed Not Available [facility] 06/07/2023 06:19:45 SARS-COV-2 (COVID-19) vaccine, UNSPECIFIED 04/19/2022 completed Not Available [facility] 06/07/2023 06:19:45 COVID-19, mRNA, LNP-S, bivalent, PF, 30 mcg/0.3 mL dose 03/29/2023 completed Not Available [facility] 06/07/20 06:19:45 pneumococcal polysaccharide PPV23 09/17/2013 completed Not Available [facility] 2022 06:19:46 Influenza, split virus, quadrivalent, PF 05/31/2023 completed Not Available [facility] 08/09/2023 05:33:17 Past Encounters Encounter ID Performer Location Encounter Start Date Encounter Closed Date Diagnosis/Indication Diagnosis SNOMED-CT Code Diagnosis ICD10 Code [id number] TAY[address]OR C[address] [address] 09/10/2023 13:23:08 09/10/2023 14:05:12 Obesity 566190415 E66.9 Essential hypertension 09970540 I10 Headache 63877582 R51.9 Mood disorder 36684273 F 39 Localized eruption of skin 021196743 R21 Seasonal a llergic rhinitis 037526198 J30.2 Paresthesia of hand 3090 04793 R20.2 [id number] [address] [address] 12/30/2023 14:54:33 12/30/2023 15:46:07 Obesity 174059414 E66.9 Essential hypertension 75998099 I10 Mood disorder 37205774 F 39 Localized eruption of skin 216321689 R21 Headache 72178495 R51.9 Seasonal a llergic rhinitis 614467395 J30.2 Paresthesia of hand 3090 30800 R20.2 Health Concerns Section Related Observation LastModified by Organization Detai ls LastModified Time None Recorded Concern Status LastModified by Organization Details LastModified Time None Recorded Advance Directives Directive None Recorded Payers Encounter Date Sequence Insurance Name Policy Number Policy Carrillo Covered Member ID Carrillo Member ID Guarantor Name 09/10/2023 1 [place] [facility] [id number] Brinda Neely [id number] Brinda Neely 12/30/2023 1 [facility] [facility] [id number] Brinda Neely [id number] Brinda Neely Notes Date Note Type Note Provider Name and Address Organization Details Recorded Time 09/10/2023 text/html HPI Notes: Is he re for follow-up: Obesity. Elevated blood sugar. Working on lifestyle. HTN. HLD. Working on lifestyle. Taking propranolol, dose was increased last visit to 20mg BID. Mood disorder. Insomnia. Taking buspar, propranolol. 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 No herpes outbreaks. Weakness. Paresthesia. To hands. Is intermittent. Has been encouraged to do splinting. Headache. Working on BP control, stress mgmt. Is on propranolol. Takes APAP PRN. Seasonal allergies. Takes meds PRN. TAYLOR CANTRELL, [employer] [address], [place], [address], [facility]. 09/10/2023 15:24:56 12/30/2023 text/html HPI Notes: Is he re for follow-up: update- she has moved out of her house. Has a new apartment on [address]. Staying with a friend that had an empty house, and this house will be sold soon. She has the keys. Moved out of [place] last weekend. Has been out of her house for 3 weeks. Now can slowly move. Plans to take most of their stuff this weekend. The boys are good with the move. Obesity. Elevated blood sugar. Working on lifestyle. Last visit started on topamax. -- update .10.19. taking, did not tolerate s/e of the [...] Last visit was encouraged to splint QHS. TAYLOR CANTRELL, [employer] MA[employer]TENANCE TECHNICIAN [address], [place], [address], [facility]. 12/30/2023 15:49:54 OBGyn Episode No OBEpisode recorded.
[2024-03-27 07:50] LABS: Bilirubin Negative (Negative); Blood Negative (Negative); Clarity Clear (Clear); Glucose Negative (Negative); Ketones Negative (Negative); Leukocyte Esterase Negative (Negative); Nitrite Negative (Negative); Specific Gravity 1.025 (1.005-1.025); Urobilinogen 0.2 mg/dL (Up to 0.2)
[2024-03-27 08:14] LABS: ALT 25 U/L (14-59); AST 13 U/L (15-37); Albumin 3.7 g/dL (3.4-5.0); Alkaline Phosphatase 60 U/L (46-116); Anion Gap 8.7 mmol/L (3-11); BUN 21 mg/dL (7-18); Bilirubin, Total 0.66 mg/dL (0.2-1.0); CO2 25.3 mmol/L (21.0-32.0); CREATININE 0.8 mg/dL (0.55-1.02); Calcium 8.4 mg/dL (8.5-10.1); Calculated LDL 134 mg/dL (<100); Chloride 106 mmol/L (98-107); Cholesterol 193 mg/dL (<200); Glucose 108 mg/dL (74-106); HDL Cholesterol 39 mg/dL (40-60); Sodium 140 mmol/L (136-145); Total Protein 6.8 g/dL (6.4-8.2); Triglyceride 104 mg/dL (<150)
[2024-03-27 08:15] LABS: COMMENT (LAB VIEW ONLY) 142.09 mg/dL
== END 2024-03-27 01:29 | disposition home or self-care (01) ==
PROVIDERS: PCP Nurse Practitioner Family; Visit Provider Nurse Practitioner Family
DX: I10 Essential (primary) hypertension (principal); E78.5 Hyperlipidemia, unspecified
CPT/HCPCS: 36415; 80053; 80061; 81003; 82043; 82570

== ENCOUNTER 2025-04-12 06:37 | Outpatient (CLI) | payer BC, MEDICAID, SELFPAY ==
[2025-04-12 14:03] LABS: Hemoglobin A1C 5.2 % (<5.7)
[2025-04-12 15:21] LABS: ALT 24 U/L (14-59); AST 11 U/L (15-37); Albumin 3.9 g/dL (3.4-5.0); Alkaline Phosphatase 63 U/L (46-116); Anion Gap 9.9 mmol/L (3-11); BUN 16 mg/dL (7-18); Bilirubin, Total 0.8 mg/dL (0.2-1.0); CO2 27.1 mmol/L (21.0-32.0); Calcium 9.2 mg/dL (8.5-10.1); Calculated LDL 132 mg/dL (<100); Chloride 102 mmol/L (98-107); Cholesterol 190 mg/dL (<200); Estimated GFR 109.30 (mL/min/1.73m2); Glucose 86 mg/dL (74-106); HDL Cholesterol 45 mg/dL (>or=50); Potassium 3.9 mmol/L (3.5-5.1); Sodium 139 mmol/L (136-145); Total Protein 7.3 g/dL (6.4-8.2); Triglyceride 67 mg/dL (<150)
== END 2025-04-12 06:38 | disposition home or self-care (01) ==
LOC: LBO 04-13 06:37
PROVIDERS: PCP Nurse Practitioner Family; Visit Provider Nurse Practitioner Family
DX: E66.9 Obesity, unspecified (principal); I10 Essential (primary) hypertension
CPT/HCPCS: 36415; 80053; 80061; 83036

== ENCOUNTER 2025-04-12 16:43 | Outpatient (REF) | payer BC, MEDICAID, SELFPAY ==
[2025-04-12 16:18] LABS: Glucose Negative (Negative)
[2025-04-12 16:37] LABS: COMMENT (LAB VIEW ONLY) 33.35 mg/dL
== END 2025-04-12 16:44 | disposition home or self-care (01) ==
LOC: NCHCN 16:43
PROVIDERS: PCP Nurse Practitioner Family; Visit Provider Nurse Practitioner Family
DX: I10 Essential (primary) hypertension (principal)
CPT/HCPCS: 81003; 82043; 82570